=== PATIENT | male | born 1965 | race Two or more races ===

== ENCOUNTER → 2016-04-16 | Outpatient (CLI) | payer SELFPAY ==
[2016-04-16 11:48] LABS: ABSOLUTE BASOPHILS # (AUTO) 0.1 10^3/uL (0.0-0.2); ABSOLUTE EOSINOPHILS # (AUTO) 0.1 10^3/uL (0.0-0.6); ABSOLUTE LYMPHOCYTES (AUTO) 1.7 10^3/uL (0.5-4.7); ABSOLUTE MONOCYTES (AUTO) 1.4 10^3/uL (0.1-1.4); ABSOLUTE NEUT (AUTO) 7.7 10^3/uL (1.7-8.2); EOSINOPHILS % (AUTO) 0.9 % (0-6); HEMATOCRIT 40.9 % (37.9-51.0); HEMOGLOBIN 13.6 g/dL (13.5-17.0); HGB HCT DIFFERENCE -0.1; LYMPHOCYTES % (AUTO) 15.1 % (13-45); MEAN CORPUSCULAR HEMOGLOBIN 34.2 pg (27.0-33.4); MEAN CORPUSCULAR HGB CONC 33.4 g/dL (32.0-36.0); MEAN CORPUSCULAR VOLUME 102 fl (80-97); MONOCYTES % (AUTO) 12.6 % (3-13); RED BLOOD COUNT 3.99 10^6/uL (4.35-5.55); RED CELL DISTRIBUTION WIDTH 14.1 % (11.5-14.0); SEGMENTED NEUTROPHILS % (AUTO) 70.4 % (42-78)
[2016-04-16 12:17] LABS: ALBUMIN 3.7 g/dL (3.5-5.0); BILIRUBIN,TOTAL 1.6 mg/dL (0.2-1.3); TOTAL PROTEIN 7.6 g/dL (6.3-8.2)
== END ==
LOC: OD 10:54
PROVIDERS: ATTEND Surgery
DX: K76.9 Liver disease, unspecified (principal); R19.5 Other fecal abnormalities; R19.7 Diarrhea, unspecified
CPT/HCPCS: 36415; 80076; 82272; 85025; 87177

== ENCOUNTER 2016-05-28 09:45 | Day surgery (SDC) | payer OTHER ==
[2016-05-27 11:39] LABS: HEMATOCRIT 38.7 % (37.9-51.0); HEMOGLOBIN 13.1 g/dL (13.5-17.0); HGB HCT DIFFERENCE 0.6; MEAN CORPUSCULAR HEMOGLOBIN 32.6 pg (27.0-33.4); MEAN CORPUSCULAR HGB CONC 33.8 g/dL (32.0-36.0); MEAN CORPUSCULAR VOLUME 97 fl (80-97); RED BLOOD COUNT 4.02 10^6/uL (4.35-5.55); RED CELL DISTRIBUTION WIDTH 13.4 % (11.5-14.0); WHITE BLOOD COUNT 8.9 10^3/uL (4.0-10.5)
[~2016-05-28 09:45] MED LIST: ACETAMINOPHEN 325 MG TABLET PO PRN; LACTATED RINGERS 1000 ML IV PRN; LIDOCAINE 0.5% INJ-PF (5 MG/ML) 50 ML SDV SUBCUT PRN
[2016-05-28] MEDS ORDERED: LIDOCAINE 2% INJ-PF (20 MG/ML) 10 ML AMPUL ONE (11:29)
[2016-05-28] MEDS ORDERED: FENTANYL CITRATE INJ/PF 100 MCG/2 ML AMPUL ONE (11:29)
[2016-05-28] MEDS ORDERED: MIDAZOLAM 2 MG/2 ML INJ ONE (11:29)
[2016-05-28] MEDS ORDERED: PROPOFOL INJ 200 MG/20 ML VIAL IV ONE ×2 (11:30→12:01)
[2016-05-28] MEDS ORDERED: FENTANYL CITRATE INJ/PF 100 MCG/2 ML AMPUL IV PRN ×3 (12:04)
[2016-05-28] MEDS ORDERED: ONDANSETRON HCL INJ/PF 4 MG/2 ML SDV IV PRN (12:04)
[2016-05-28] MEDS ORDERED: DIPHENHYDRAMINE HCL 50 MG/ML VIAL IV PRN (12:04)
[2016-05-28] MEDS ORDERED: PROMETHAZINE HCL INJ 25 MG/1 ML VIAL IV PRN (12:04)
--- NOTE | 2016-05-28 12:29 | Operative Report ---
Operative Report DATE OF SURGERY: 05/28/16 PREOPERATIVE DIAGNOSIS: 1. Need for screening colonoscopy. 2. Family history of colon cancer POSTOPERATIVE DIAGNOSIS: 1.Same with 1 polypoid mass at ileocecal valve. 2. Left colon polyp. 3. Extensive sigmoid diverticulosis. 4. Collapsed external hemorrhoids OPERATION: 1. Total colonoscopy to cecum with photodocumentation. 2. Biopsy of cecal mass. 3. Colon polypectomy with hot snare device, left colon SURGEON: CAM SU ANESTHESIA: LMAC TISSUE REMOVED OR ALTERED: 1.biopsy of cecal mass. 2. Left colon polyp COMPLICATIONS: None ESTIMATED BLOOD LOSS: scant INTRAOPERATIVE FINDINGS: A below PROCEDURE: Obtaining informed consent the patient was taken from the preoperative holding area to the main endoscopy suite where monitoring devices were attached to the patient. Plan and surgical timeout were conducted The patient was placed in the left lateral decubitus position with knees to chest. A perianal examination was performed. There was no visible or palpable anorectal pathology. Sphincter tone was felt to be normal. There were collapsed external hemorrhoids identified. The flexible adult colonoscope was advanced through the anal rectal canal, all the way to the cecum. Utilization of the cecum was achieved and the ileocecal valve, the appendiceal orifice and transillumination of the anterior abdominal wall. This was an excellent study on the well-prepped bowel. The base of the cecum, presumably at the ileocecal valve was a void fullness possibly 2-3 cm in size had the appearance of the ileocecal valve but appeared to be more friable. Photos were taken and a cold forceps biopsy was performed of the mucosa. Bleeding was negligible. Because of the size of this mass and the ileocecal valve, it was left in situ. The colonoscope was withdrawn slowly and methodically checked and the mucosa carefully. There was no evidence of tumor, stricture, bleeding; there was a small on the wall of the left colon proximal to 60 cm from the anal verge. It was removed in its entirety and a hot snare device on medium heat strength. Specimen was retrieved and labeled as left colon polyp. Bleeding from the polypectomy site. Extensive sigmoid diverticulosis noted. There was no Evidence of stricture. The scope was slowly withdrawn through the anal rectal canal. Complete visualization of the rectum was achieved. The scope was withdrawn to the patient's anus. The patient tolerated the procedure well and was taken to the recovery area in stable condition. Pending pathologic findings, patient may require repeat colonoscopy, definitive management of cecal mass, or surveillance colonoscopy in one to 3 years.
--- NOTE | 2016-05-28 12:31 | PDOC DISCHARGE SUMMARY ---
Discharge Summary (SDC) - Discharge Final Diagnosis: 1. Sigmoid diverticulosis 2. Left colon polyp status post polypectomy 3. Cecal mass of uncertain significance Date of Surgery: 05/28/16 Discharge Date: 05/28/16 Condition: Good Treatment or Instructions: [address] [address] POST ENDOSCOPY DISCHARGE INSTRUCTIONS 1. Diet: Start clear liquids that a regular diet as tolerated. 2. Resume all preoperative medications. All oral anticoagulants and aspirins can be resumed 24 hours after procedure. 3. If a polypectomy was performed some bleeding per rectum may occur. This should stop within 3 days. If not, please contact the office. 4. If you had a colonoscopy you may experience some bloating and delayed return of normal bowel function for several days, your regular bowel movement pattern should resume within a week. 5. Please contact [facility] at to make an appointment with Dr. Campos for 1 to 3 weeks following procedure. 6. If you have any questions or concerns regarding your care,treatment plan or follow up, please contact our office. 7. Per clinical guidelines we recommend you undergo a repeat colonoscopy in one to 3 years depending upon the pathology of the cecal mass. Discharge Diet: As Tolerated Discharge Activity: Activity As Tolerated Report the Following to Your Physician Immediately: Shortness of Breath, Increase in Pain, Fever over 101 Degrees
[2016-05-28 13:38] VITALS: BP 131/80
== END 2016-05-28 13:45 | disposition home or self-care (01) ==
LOC: OROUT 09:45
PROVIDERS: ATTEND Surgery
PROC: 0DBH8ZX Excision of Cecum, Via Natural or Artificial Opening Endoscopic, Diagnostic (ICD-10-PCS; principal; 2016-05-28 12:00)
PROC: 0DBG8ZX Excision of Left Large Intestine, Via Natural or Artificial Opening Endoscopic, Diagnostic (ICD-10-PCS; 2016-05-28 12:00)
DX: Z12.11 Encounter for screening for malignant neoplasm of colon (principal); D12.0 Benign neoplasm of cecum; K63.5 Polyp of colon; K57.30 Diverticulosis of large intestine without perforation or abscess without bleeding; K44.9 Diaphragmatic hernia without obstruction or gangrene; F17.210 Nicotine dependence, cigarettes, uncomplicated; K76.9 Liver disease, unspecified; Z79.1 Long term (current) use of non-steroidal anti-inflammatories (NSAID); Z80.0 Family history of malignant neoplasm of digestive organs; Z88.8 Allergy status to other drugs, medicaments and biological substances
CPT/HCPCS: 45380; 45385; 36415; 85027; 88305 ×2; J2250; J3010; J2704; J3490; 810

== ENCOUNTER 2016-09-24 05:25 | Inpatient (IN) | payer OTHER ==
[2016-09-17 10:29] LABS: HEMATOCRIT 46.1 % (37.9-51.0); HEMOGLOBIN 15.8 g/dL (13.5-17.0); HGB HCT DIFFERENCE 1.3; MEAN CORPUSCULAR HEMOGLOBIN 31.3 pg (27.0-33.4); MEAN CORPUSCULAR HGB CONC 34.2 g/dL (32.0-36.0); MEAN CORPUSCULAR VOLUME 91 fl (80-97); RED BLOOD COUNT 5.05 10^6/uL (4.35-5.55); RED CELL DISTRIBUTION WIDTH 13.8 % (11.5-14.0)
[2016-09-17 10:53] LABS: ANION GAP 10 (5-19); BLOOD UREA NITROGEN 14 mg/dL (7-20); CALCIUM 9.7 mg/dL (8.4-10.2); CARBON DIOXIDE 26 mmol/L (22-30); CHLORIDE 105 mmol/L (98-107); CREATININE RESULT 1.07 mg/dL (0.52-1.25); GLUCOSE 89 mg/dL (75-110); POTASSIUM 4.7 mmol/L (3.6-5.0); SODIUM 141.2 mmol/L (137-145)
--- NOTE | 2016-09-18 13:05 | EKG REPORT ---
SEVERITY:- NORMAL ECG - SINUS RHYTHM : Confirmed by: Cal Shaw 18-Sep-2016 13:05:03
[~2016-09-24 05:25] MED LIST changes: -ACETAMINOPHEN 325 MG TABLET PO PRN; +AMPICILLIN SODIUM/SULBACTAM NA 3 GM in NORMAL SALINE 100 ML IV PRN; +DEXTROSE 5%-LACTATED RINGERS 1,000 ML IV PRN; -LACTATED RINGERS 1000 ML IV PRN; +LIDOCAINE 0.5% INJ-PF (5 MG/ML) 50 ML SDV INJ PRN; -LIDOCAINE 0.5% INJ-PF (5 MG/ML) 50 ML SDV SUBCUT PRN; +RINGERS SOLUTION,LACTATED 1,000 ML IV PRN
[2016-09-24] MEDS ORDERED: CITRIC ACID/SODIUM CITRATE ORAL SOLN 15 ML UDCUP ONE (07:06)
[2016-09-24] MEDS ORDERED: METOCLOPRAMIDE HCL INJ/PF 10 MG/2 ML SDV ONE (07:07)
[2016-09-24] MEDS ORDERED: ONDANSETRON HCL INJ/PF 4 MG/2 ML SDV ONE ×2 (07:07→09:13)
[2016-09-24] MEDS ORDERED: PEG 3350/NA SULF,BICARB,CL/KCL 4000 ML PO ONE (07:30)
[2016-09-24] MEDS ORDERED: LIDOCAINE 2% INJ-PF (20 MG/ML) 10 ML AMPUL ONE (09:13)
[2016-09-24] MEDS ORDERED: KETOROLAC TROMETHAMINE 60 MG/2 ML SDV ONE (09:13)
[2016-09-24] MEDS ORDERED: SUCCINYLCHOLINE CHLORIDE INJ 200 MG/10 ML VIAL ONE (09:13)
[2016-09-24] MEDS ORDERED: NEOSTIGMINE METHYLSULFATE 10 MG/10 ML VIAL ONE (09:13)
[2016-09-24] MEDS ORDERED: GLYCOPYRROLATE INJ 0.4 MG/2 ML VIAL ONE (09:13)
[2016-09-24] MEDS ORDERED: DEXAMETHASONE SOD PHOSPHATE INJ 4 MG/1 ML VIAL ONE (09:13)
[2016-09-24] MEDS ORDERED: ROCURONIUM BROMIDE INJ 50 MG/5 ML VIAL IV ONE (09:13)
[2016-09-24] MEDS ORDERED: FENTANYL CITRATE INJ/PF 250 MCG/5 ML AMPULE ONE (11:50)
[2016-09-24] MEDS ORDERED: MIDAZOLAM 2 MG/2 ML INJ ONE (11:51)
[2016-09-24] MEDS ORDERED: PROPOFOL INJ 200 MG/20 ML VIAL IV ONE (11:51)
[2016-09-24] MEDS ORDERED: HYDROMORPHONE HCL INJ/PF 2 MG/ML AMPULE ONE (11:51)
[2016-09-24] MEDS ORDERED: BUPIVACAINE HCL 0.25 % INJ/PF (2.5 MG/1 ML) 30 ML VIAL ONE (12:03)
[2016-09-24] MEDS ORDERED: BUPIVACAINE INJ/PF LIPOSOME/PF 266 MG/20 ML SDV ONE (12:03)
[2016-09-24] MEDS ORDERED: OXYCODONE-ACETAMINOPHEN 5-325 MG TABLET PO PRN ×2 (12:28)
[2016-09-24] MEDS ORDERED: FENTANYL CITRATE INJ/PF 100 MCG/2 ML AMPUL IV PRN ×3 (12:28)
[2016-09-24] MEDS ORDERED: DIPHENHYDRAMINE HCL 50 MG/ML VIAL IV PRN (12:28)
[2016-09-24] MEDS ORDERED: MORPHINE SULFATE 10 MG/ML INJ IV PRN (12:28)
[2016-09-24] MEDS ORDERED: PROMETHAZINE HCL INJ 25 MG/1 ML VIAL IV PRN ×2 (12:28)
[2016-09-24] MEDS ORDERED: MEPERIDINE HCL/PF INJ 25 MG/1 ML DISP.SYRIN IV PRN (12:28)
[2016-09-24] MEDS ORDERED: MORPHINE SULFATE 10 MG/ML INJ ONE (14:24)
[2016-09-24] MEDS ORDERED: ACETAMINOPHEN 100 ML IV ONE (15:21)
[2016-09-24] MEDS ORDERED: PHARMACY COMMUNICATION ORDER MC NR (16:00)
[2016-09-24] MEDS ORDERED: DEXTROSE 50%-WATER 25 GM/50 ML DISP.SYRIN IV PRN ×2 (16:00)
[2016-09-24] MEDS ORDERED: DEXTROSE 5%-LACTATED RINGERS 1,000 ML IV PRN (16:00)
[2016-09-24] MEDS ORDERED: DEXTROSE 40% GEL 15 GM TUBE PO PRN ×2 (16:00)
[2016-09-24] MEDS ORDERED: GLUCAGON,HUMAN RECOMB 1 MG INJ SUBCUT PRN (16:00)
--- NOTE | 2016-09-24 17:32 | OPERATIVE REPORT E ---
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 OPERATION: 1. Laparoscopic right hemicolectomy with ileal transverse anastomosis. 2. Meckel's diverticulectomy. SURGEON: CAM CAMPOS M.D. ANESTHESIA: General. GAS LEAK INSPECTOR HELPER: STACY Conn. COMPLICATIONS: None. ESTIMATED BLOOD LOSS: 200 mL. FINDINGS: See below. SUMMARY OF PROCEDURE: The patient was brought from the preop holding area to the main operating room where general anesthesia was induced. An orogastric tube was inserted. The arms were tucked to the patient's side. The abdomen was exposed, prepped and draped in a sterile fashion and instrumentation set up for laparoscopic colectomy. Prior to prepping, a Manzano catheter was inserted 16 Angolan uneventfully. There was return of clear yellow urine. Surgical plan and surgical timeout were conducted. The plan was for a right laparoscopic colectomy and possible conversion to open pending intraoperative findings. The indications were a cecal mass, biopsy showing tubulovillous adenoma. Skin was anesthetized with 0.25% Marcaine at the umbilicus. A vertically oriented supraumbilical incision was made with a knife and Veress needle inserted into the peritoneal cavity. Pneumoperitoneum was established. The Veress needle was removed, 5 mm port was inserted, and a 5 mm flexible scope was inserted. Under direct visualization, three additional ports were placed; one in the left upper quadrant, one in the left lower quadrant, one in the suprapubic position; all 5 mm, all under direct visualization. Visualization into the peritoneal cavity revealed no evidence of visceral or vascular injury. The stomach and liver appeared grossly normal, although there was some lobulation of the right lobe of the liver consistent with steatosis versus mild cirrhosis. No biopsy was obtained. Photos were obtained. Also of note was the patient's noted right inguinal hernia. There was no evidence of incarcerated tissue in the hernia. We placed the patient in Trendelenburg position and tilted him so the right side was up with left side down. We approached the patient's right colon by freeing up the small bowel and place it up to the left side of midline. This gave us exposure to the ileocolic region. Of note, we detected a previously undiagnosed Meckel's diverticulum approximately 2 feet from the ileocecal valve. It was photographed. We began the operation using the medial approach, elevating the ileocecal valve to the patient's left and the ileocolic mesentery to the right. The ileocecal mesentery was opened with the use of the LigaSure. We did some dissection into the mesentery until we identified the ileocolic vessels. They were dissected out nicely under excellent visualization, artery and vein clipped separately with hemoclips and then cauterized and divided. After some teasing away of the retroperitoneal space, we were able to get into the appropriate plane and begin our dissection elevating the right mesocolon cephalad and anteriorly, and the retroperitoneum posteriorly. We achieved visualization of the duodenum throughout the entire dissection and were confident that there was never any violation of the duodenal serosa. We stayed lateral to the duodenum and took the level of dissection up towards the hepatic flexure. Unfortunately, the retroperitoneum was rather tethered and did not separate as easily laterally as it did medially. At this point, we changed our operative position and approached the ileocolic region and began mobilizing these tissues. The appendix was strapped to the lateral pericolic gutter with mild inflammatory changes. The appendix was elevated off using the LigaSure device. The peritoneum overlying the ileocolic region was divided, and we began going up the white line of Toldt. Unfortunately, the plane of dissection was somewhat poorly delineated, but nonetheless, we were able to work our way from caudad to cephalad direction up to the hepatic flexure. We now changed our operative approach again and approached the transverse colon. It was retracted caudad, the gastrocolic omentum retracted cephalad, and we began opening up the gastrocolic omentum, all to the right of the patient's midline. This plane of dissection was taken all the way up to the level of the hepatic flexure. Eventually, we met our previous plane of dissection mobilizing the mesocolon from the medial approach. We had the duodenum in complete view and continued to sweep the transverse colon, proximal aspect, caudad. We now went back, changed positions, and freed up the rest of the ileocolic mesentery so that it was all intact with the planned specimen. There was excellent mobilization of the colon. Bleeding was cauterized as encountered but for the most part was minimal. We felt it was safe to now exteriorize the colon. The port was removed from midline, skin anesthetized with 0.25% Marcaine, and the initial incision extended cephalad and caudad encompassing the umbilicus. A conventional Oni wound access tissue hourly shift manager was installed into position. We brought the right colon out of the patient exteriorizing it safely. Again, the ileocolic vessels had been previously divided. The right colon was suspended from the right colic vessel, and the right branch of the middle colic vessels. We found a suitable site for transection at the terminal ileum proximal to the ileocecal valve, and the small bowel was divided with a single firing of the RAQUEL-55 stapler. The right colic vessels and the right branch of the middle colic vessels were divided and tied off with #0-Vicryl suture, and their pedicles allowed to retract. This now allowed the right colon to be suspended solely from the transverse colon. It was felt that it was suitable to divide down to transverse colon, and this was affected with a second firing of the RAQUEL-55 stapler. We were careful to keep the terminal ileum and the transverse colon distally in the appropriate orientation for the anastomosis. The specimen, right colon, was taken to the back taken and opened by Dr. Campos longitudinally and found to contain the tumor in the cecum. We returned to the field and now completed our ileotransverse cgxa-bl-luaq/functional end-to-end anastomosis. This was effected by bringing the two external surfaces together with 2-0 Vicryl suture. A small enterotomy and colotomy was made with the electrocautery. The RAQUEL-55 stapler was then threaded into position, and the stapler deployed. The suture line was inspected and found to have no significant bleeding. The common opening between the small bowel and the transverse colon was closed with a single firing of the TA-60 stapler. Two [id number] stitches of 2-0 Vicryl were used to secure the mesenteric defect. The anastomosis was not under tension, was well vascularized and pink. It was returned to the peritoneal cavity and the Oni cap placed into position. Pneumoperitoneum was returned. We resumed laparoscopic portion of the operation by inspecting for any mechanical bleeding, and there was none. A large Matt drain was placed in the inferior drain port site. In addition, while the bowel was exteriorized, we did amputate the Meckel's diverticulum using a single firing of the RAQUEL-55 stapler. The Meckel's diverticulum was sent to pathology as same. While inspecting the viscera, laparoscopically, we found the anastomosis and the Meckel's diverticulectomy site to be in good condition. At this point, we felt the operation was complete. Sponge and needle counts were correct. All ports were removed. The Oni was removed, and the midline incision closed with two running #0-PDS sutures. All incisions closed with cody, and the drain in the suprapubic position secured to the skin with 2-0 Prolene suture. The patient tolerated the procedure well, extubated, and taken to the recovery room in stable condition. STACY Conn, provided needed assistance. DICTATING PHYSICIAN: CAM CAMPOS M.D. [id number] PHY#: [id number] ID: [id number] JOB#: [id number] ACCT: [id number] cc:CAM CAMPOS M.D. > MTDD
[2016-09-24] MEDS: MORPHINE SULFATE 10 MG/ML INJ IV PRN ×2 (18:25→23:39)
[2016-09-24] MEDS: OXYCODONE-ACETAMINOPHEN 5-325 MG TABLET NG PRN (22:22)
[2016-09-25] MEDS: OXYCODONE-ACETAMINOPHEN 5-325 MG TABLET NG PRN ×2 (03:15→22:36)
[2016-09-25] MEDS: MORPHINE SULFATE 10 MG/ML INJ IV PRN ×4 (05:12→20:31)
[2016-09-25] MEDS ORDERED: DEXTROSE 5%-LACTATED RINGERS 1,000 ML IV PRN (09:19)
[2016-09-25] MEDS ORDERED: DEXTROSE 40% GEL 15 GM TUBE NG PRN ×2 (13:00)
--- NOTE | 2016-09-25 17:27 | PROGRESS NOTE E ---
Progress Note NAME: REJI COMBS : 1965 AGE: 51Y DATE: 09/25/2016 ROOM: 434 SUBJECTIVE: This is a subsequent hospital note. The patient had a good night, no complaints. Desires Manzano catheter removed. OBJECTIVE: VITAL SIGNS: Stable. ABDOMEN: Examined. It is wrapped with abdominal binder. Serosanguineous drainage in the bowl chamber of the drain. LABORATORY DATA: No labs pending. IMPRESSION: DOING WELL ONE DAY STATUS POST HEMICOLECTOMY FOR CECAL MASS, PATHOLOGY PENDING. PLAN: 1. Discontinue Manzano catheter. 2. Ambulate patient. 3. Start ice chips this afternoon. 4. May shower. DICTATING PHYSICIAN: CAM SU M.D. [id number] PHY#: [id number] ID: [id number] JOB#: [id number] ACCT: [id number] cc: >
[2016-09-26] MEDS: MORPHINE SULFATE 10 MG/ML INJ IV PRN ×2 (03:05→21:29)
[2016-09-26] MEDS: OXYCODONE-ACETAMINOPHEN 5-325 MG TABLET NG PRN (05:18)
[2016-09-26] MEDS: KETOROLAC TROMETHAMINE 10 MG TABLET PO PRN ×2 (10:18→16:56)
[2016-09-27] MEDS: MORPHINE SULFATE 10 MG/ML INJ IV PRN ×2 (05:52→09:38)
[2016-09-27] MEDS ORDERED: ACETAMINOPHEN 325 MG TABLET PO PRN (13:21)
--- NOTE | 2016-09-27 13:28 | PDOC PROGRESS REPORT ---
Subjective Progress Note for:: 09/27/16 Subjective:: patient is comfortabls, ambulating, denies flatus, tolerating clear liquids Physical Exam Vital Signs: Temp Pulse Resp BP Pulse Ox 98.0 F 67 16 135/84 H 94 09/27/16 11:50 09/27/16 11:50 09/27/16 11:50 09/27/16 11:50 09/27/16 11:50 Intake & Output 09/26/16 09/27/16 09/28/16 06:59 06:59 06:59 Intake Total 3268 780 Output Total 2305 1870 Balance 963 -1090 Weight 74 kg 70.5 kg Respiratory exam: PRESENT: clear to auscultation cristian Cardiovascular exam: PRESENT: RRR GI/Abdominal exam: PRESENT: hypoactive bowel sounds - incisions c/d/i, soft Results Laboratory Results: 09/17/16 09:20 09/17/16 09:20 Assessment & Plan - Plan Summary Plan Summary: A/ POD#3 after laparoscopic right hemicolectonmy for neoplasia patient VSS, AF no lfatus yet clears tolerated PE unremarkable P/ Continue clears until flatus Continue IVF stop morphine IV start Tylenol/Toradol for pain control if flatus is present tomorrow, I will advance diet to full liquids and possible d/c in 24/36 hrs
[2016-09-27] MEDS: KETOROLAC TROMETHAMINE 10 MG TABLET PO PRN (17:24)
[2016-09-28 06:01] LABS: ABSOLUTE BASOPHILS # (AUTO) 0.1 10^3/uL (0.0-0.2); ABSOLUTE EOSINOPHILS # (AUTO) 0.1 10^3/uL (0.0-0.6); ABSOLUTE LYMPHOCYTES (AUTO) 2.7 10^3/uL (0.5-4.7); BASOPHILS % (AUTO) 0.5 % (0-2); EOSINOPHILS % (AUTO) 0.8 % (0-6); HEMATOCRIT 39.4 % (37.9-51.0); HEMOGLOBIN 13.3 g/dL (13.5-17.0); HGB HCT DIFFERENCE 0.5; LYMPHOCYTES % (AUTO) 27.6 % (13-45); MEAN CORPUSCULAR HEMOGLOBIN 30.3 pg (27.0-33.4); MEAN CORPUSCULAR HGB CONC 33.8 g/dL (32.0-36.0); MEAN CORPUSCULAR VOLUME 90 fl (80-97); MONOCYTES % (AUTO) 10.4 % (3-13); RED BLOOD COUNT 4.39 10^6/uL (4.35-5.55); RED CELL DISTRIBUTION WIDTH 13.2 % (11.5-14.0); SEGMENTED NEUTROPHILS % (AUTO) 60.7 % (42-78); WHITE BLOOD COUNT 9.9 10^3/uL (4.0-10.5)
[2016-09-28 06:30] LABS: ANION GAP 9 (5-19); BLOOD UREA NITROGEN 20 mg/dL (7-20); CALCIUM 9.3 mg/dL (8.4-10.2); CARBON DIOXIDE 30 mmol/L (22-30); CHLORIDE 99 mmol/L (98-107); CREATININE RESULT 0.92 mg/dL (0.52-1.25); GLUCOSE 113 mg/dL (75-110); POTASSIUM 4.1 mmol/L (3.6-5.0); SODIUM 137.6 mmol/L (137-145)
[2016-09-28] MEDS: KETOROLAC TROMETHAMINE 10 MG TABLET PO PRN (10:13)
[2016-09-28 12:16] VITALS: BP 130/76
--- NOTE | 2016-09-28 15:08 | PDOC PROGRESS REPORT ---
Subjective Progress Note for:: 09/28/16 Subjective:: comfortable, patient has had stools and flatus today Physical Exam Vital Signs: Temp Pulse Resp BP Pulse Ox 98.0 F 59 L 15 130/76 H 98 09/28/16 11:58 09/28/16 11:58 09/28/16 11:58 09/28/16 11:58 09/28/16 11:58 Intake & Output 09/27/16 09/28/16 09/29/16 06:59 06:59 06:59 Intake Total 780 1480 420 Output Total 1870 400 Balance -1090 1080 420 Weight 70.5 kg 70 kg Respiratory exam: PRESENT: clear to auscultation cristian Cardiovascular exam: PRESENT: RRR GI/Abdominal exam: PRESENT: soft, other - wound c/d/i Results Laboratory Results: 09/28/16 05:23 09/28/16 05:23 09/28/16 09/28/16 05:23 05:23 WBC 9.9 RBC 4.39 Hgb 13.3 L Hct 39.4 MCV 90 MCH 30.3 MCHC 33.8 RDW 13.2 Plt Count 152 Seg Neutrophils % 60.7 Lymphocytes % 27.6 Monocytes % 10.4 Eosinophils % 0.8 Basophils % 0.5 Absolute Neutrophils 6.0 Absolute Lymphocytes 2.7 Absolute Monocytes 1.0 Absolute Eosinophils 0.1 Absolute Basophils 0.1 Sodium 137.6 Potassium 4.1 Chloride 99 Carbon Dioxide 30 Anion Gap 9 BUN 20 Creatinine 0.92 Est GFR ( Amer) > 60 Est GFR (Non-Af Amer) > 60 Glucose 113 H Calcium 9.3 Assessment & Plan - Plan Summary Plan Summary: A/ POD#4 after laparoscopic right hemicolectomy for neoplasia patient VSS, AF flatus and stools present PE unremarkable P/ Home today F/U with Dr. Campos within 1 week Full liquid diet, advance to regular as tolerated in 1-2 days no lifting >10 pounds x 3 months Shower only until staple are in then can bathe in 2 weeks Tylenol/Aleve prn pain
--- NOTE | 2016-09-29 14:56 | DISCHARGE SUMMARY E ---
Discharge Summary NAME: REJI COMBS : 1965 AGE: 51Y ADMITTED: 09/24/2016 DISCHARGED: 09/28/2016 FINAL DIAGNOSIS: Right colon cancer. PROCEDURE: Laparoscopic right hemicolectomy on September 24, 2016. COMPLICATIONS: None. HOSPITAL COURSE: This is a 51-year-old male found to have a right colon cancer. The patient was admitted on 09/24/2016 and underwent laparoscopic right hemicolectomy by Dr. Campos. The procedure was uneventful. The patient was transferred to the floor. His postoperative course was uneventful. The patient remained afebrile with stable vital signs, and eventually on postop day #4, the patient developed flatus/stools. DISCHARGE INSTRUCTIONS: The patient was discharged on September 28, 2016, was given a follow-up appointment with Dr. Campos within a week. He was given Tylenol p.r.n. and Aleve p.r.n. for pain. He was told to follow a full-liquid diet for the next the day and to increase the diet to regular in the next 1 to 2 days. He was instructed to shower only, and then the patient could bathe following removal of the cody and to follow up with his primary care physician as well. DICTATING PHYSICIAN: CASSIA SPEARS M.D. [id number] PHY#: [id number] ID: [id number] JOB#: [id number] ACCT: [id number] cc:CAM CAMPOS M.D., GIOVANNI M.D. > MTDD
== END 2016-09-28 16:00 | disposition home or self-care (01) | DRG 331 ==
LOC: INOR 05:25 → EDSTATUS 07:30 → 4S 17:53 → 5 09-26 17:22
PROVIDERS: ADMIT Surgery; ATTEND Surgery
PROC: 0DBB0ZZ Excision of Ileum, Open Approach (ICD-10-PCS; 2016-09-24)
PROC: 0DTF0ZZ Resection of Right Large Intestine, Open Approach (ICD-10-PCS; principal; 2016-09-24 07:30)
DX: D12.0 Benign neoplasm of cecum (principal); Q43.0 Meckel's diverticulum (displaced) (hypertrophic); K40.90 Unilateral inguinal hernia, without obstruction or gangrene, not specified as recurrent; Z80.0 Family history of malignant neoplasm of digestive organs; F17.200 Nicotine dependence, unspecified, uncomplicated
CPT/HCPCS: 36415; 790; 80048; 85025; 85027; 88307; 93005; 93010; 94799; C9290; J0131; J0295; J0330; J1100; J1170; J1885; J2250; J2270; J2405; J2704; J2765; J3010; J3490

== ENCOUNTER 2017-04-01 09:45 | Day surgery (SDC) | payer OTHER ==
[2017-03-25 10:43] LABS: HEMATOCRIT 46.6 % (37.9-51.0); HEMOGLOBIN 15.8 g/dL (13.5-17.0); MEAN CORPUSCULAR HEMOGLOBIN 31.3 pg (27.0-33.4); MEAN CORPUSCULAR HGB CONC 33.8 g/dL (32.0-36.0); MEAN CORPUSCULAR VOLUME 92 fl (80-97); PLATELET COUNT 153 10^3/uL (150-450); RED BLOOD COUNT 5.04 10^6/uL (4.35-5.55); WHITE BLOOD COUNT 8.2 10^3/uL (4.0-10.5)
[2017-03-25 11:14] LABS: BLOOD UREA NITROGEN 15 mg/dL (7-20); CALCIUM 9.9 mg/dL (8.4-10.2); GLUCOSE 153 mg/dL (75-110)
[2017-03-25 11:15] LABS: ANION GAP 11 (5-19); CARBON DIOXIDE 26 mmol/L (22-30); CHLORIDE 103 mmol/L (98-107); POTASSIUM 4.6 mmol/L (3.6-5.0); SODIUM 139.6 mmol/L (137-145)
--- NOTE | 2017-03-25 11:41 | RADIOLOGY REPORT (SQ) ---
EXAM DESCRIPTION: CHEST PA/LATERAL COMPLETED DATE/TIME: 03/25/2017 10:39 am REASON FOR STUDY: PRE OP COMPARISON: None. TECHNIQUE: Frontal and lateral radiographic views of the chest acquired. NUMBER OF VIEWS: Two view. LIMITATIONS: None. FINDINGS: LUNGS AND PLEURA: No opacities, masses or pneumothorax. No pleural effusion. MEDIASTINUM AND HILAR STRUCTURES: No masses or contour abnormalities. HEART AND VASCULAR STRUCTURES: Heart normal size. No evidence for failure. BONES: No acute findings. HARDWARE: None in the chest. OTHER: No other significant finding. IMPRESSION: NO SIGNIFICANT RADIOGRAPHIC FINDING IN THE CHEST. TECHNICAL DOCUMENTATION: JOB ID: [id number] [email or web address]- All Rights Reserved
--- NOTE | 2017-03-26 08:46 | EKG REPORT ---
SEVERITY:- NORMAL ECG - SINUS RHYTHM : Confirmed by: Cal Shaw 26-Mar-2017 08:45:47
[~2017-04-01 09:45] MED LIST changes: +ACETAMINOPHEN 325 MG TABLET PO PRN; -AMPICILLIN SODIUM/SULBACTAM NA 3 GM in NORMAL SALINE 100 ML IV PRN; +CEFAZOLIN 1 GM/D5W RTU 1 GM/50 ML RTUPB IV SCH; -DEXTROSE 5%-LACTATED RINGERS 1,000 ML IV PRN; +LACTATED RINGERS 1000 ML IV PRN; -LIDOCAINE 0.5% INJ-PF (5 MG/ML) 50 ML SDV INJ PRN; +LIDOCAINE 0.5% INJ-PF (5 MG/ML) 50 ML SDV SUBCUT PRN
[2017-04-01] MEDS ORDERED: ALBUTEROL SULFATE 0.083% NEB 2.5 MG/3 ML AMPUL NEB ONE (11:00)
[2017-04-01] MEDS ORDERED: DEXAMETHASONE SOD PHOSPHATE INJ 4 MG/1 ML VIAL ONE (11:03)
[2017-04-01] MEDS ORDERED: ONDANSETRON HCL INJ/PF 4 MG/2 ML SDV ONE (11:03)
[2017-04-01] MEDS ORDERED: FENTANYL CITRATE INJ/PF 100 MCG/2 ML AMPUL ONE (11:03)
[2017-04-01] MEDS ORDERED: PROPOFOL INJ 200 MG/20 ML VIAL IV ONE (11:03)
[2017-04-01] MEDS ORDERED: MIDAZOLAM 2 MG/2 ML INJ ONE (11:03)
[2017-04-01] MEDS ORDERED: KETOROLAC TROMETHAMINE 60 MG/2 ML SDV ONE (11:04)
[2017-04-01] MEDS ORDERED: BUPIVACAINE INJ/PF LIPOSOME/PF 266 MG/20 ML SDV ONE (11:10)
[2017-04-01] MEDS ORDERED: BUPIVACAINE HCL 0.25 % INJ/PF (2.5 MG/1 ML) 30 ML VIAL ONE (11:11)
[2017-04-01] MEDS ORDERED: MEPERIDINE HCL/PF INJ 25 MG/1 ML DISP.SYRIN IV PRN (11:44)
[2017-04-01] MEDS ORDERED: FENTANYL CITRATE INJ/PF 100 MCG/2 ML AMPUL IV PRN ×3 (11:44)
[2017-04-01] MEDS ORDERED: MORPHINE SULFATE 10 MG/ML INJ IV PRN (11:44)
[2017-04-01] MEDS ORDERED: DIPHENHYDRAMINE HCL 50 MG/ML VIAL IV PRN (11:44)
[2017-04-01] MEDS ORDERED: OXYCODONE-ACETAMINOPHEN 5-325 MG TABLET PO PRN ×3 (11:44→13:00)
[2017-04-01] MEDS ORDERED: PROMETHAZINE HCL INJ 25 MG/1 ML VIAL IV PRN ×2 (11:44)
--- NOTE | 2017-04-01 13:00 | PDOC DISCHARGE SUMMARY ---
Discharge Summary (SDC) - Discharge Final Diagnosis: Right Pantaloon hernia Date of Surgery: 04/01/17 Discharge Date: 04/01/17 Condition: Stable Treatment or Instructions: [facility] [address] [place] [id number] Discharge Instructions: Open Abdominal Procedures (Hernia, Bowel Surgery) 1.General Information: a. DO NOT DRIVE a car or operative machinery for 1-2 weeks b. DO NOT consume alcohol, tranquilizers, sleeping medication, or any non- prescribed medication for 24 hours unless approved by your doctor or as long as taking pain medication. c. DO NOT make important decisions or sign any important papers for the first 24 hours after surgery. d. When discharged home the same day as surgery have a responsible person with you the first night. 2.Activity Restriction: 8 weeks; a. Avoid heavy lifting (> 10-15 lbs), straining abdominal muscles and sports, mowing lawn, vacuum pipe cleaner and bending over a lot. b. Walking is important to avoid blood clots in the legs and deep breathing can prevent pneumonia. c. If it fine to go for walks, up and down steps, and ride in a car. 3.Treatment: a. You may remove dressing or Band-Aids the day after surgery and shower then daily is fine, but you should not bathe in a tub or go swimming for 2 weeks. b. If you have paper strips (steri strips) on the skin, do not remove them as they will fall off in the coming weeks. Pat them dry after your shower. Sutures beneath the paper strips dissolve. If you have skin sutures or metal cody they will be removed on your follow up visit. They may also get wet with a shower. c. Do not use oils, powders, or lotion on your incision. 4.Medications: a. You may take prescription tablets for pain if needed, one or two every 4 hours (_Toradol ). c. You may resume all normal medications unless a change is specified by your doctors. 5.Diet: a. If going home the same day as surgery start with clear liquids, and if you do well then advance to normal foods low inf fat and protein. Smaller portion size may be neal the first night. 6.Notify Physician If: a. Pain is not relieved by pain medication b. Persistent nausea and vomiting c. Chills, fever (above 101) d. Persistent bleeding or swelling at the operative site e. Unable to urinate for 6-8 hours f. Increased redness, drainage, or foul smelling discharge from incision 7. Follow Up Care: a. Please call our office to schedule an appointment with your doctor for 2 weeks. In the event of any postoperative problems or questions you may call our office during business hours or the On-Call surgeon through the margarine churn operator at [facility]. [facility] [phone] [facility] [phone] (Ask for the surgeon front man) b. I understand the instructions for my postoperative care as described above and a copy has been given to me. _ Witness Patient/Significant Other Date Prescriptions: Ketorolac Tromethamine [Toradol 10 mg Tablet] 10 mg PO Q6HP PRN #20 tablet PRN Reason: Discharge Diet: As Tolerated Discharge Activity: No Lifting Over 10 Pounds, No Lifting/Push/Pulling, Walk Frequently Report the Following to Your Physician Immediately: Nausea, Vomiting, Fever over 101 Degrees, Unusual Bleeding, Redness, Drainage-Foul Smelling
[2017-04-01] MEDS ORDERED: ONDANSETRON HCL INJ/PF 4 MG/2 ML SDV IV PRN (13:01)
--- NOTE | 2017-04-01 13:14 | Operative Report ---
Operative Report DATE OF SURGERY: 04/01/17 PREOPERATIVE DIAGNOSIS: Right inguinal hernia POSTOPERATIVE DIAGNOSIS: Same with double or pantaloon hernia right inguinal area;. Hyperpigmented right retroperitoneal lymph node OPERATION: 1. Right inguinal exploration. 2. Reduction of right direct, and right indirect inguinal hernias repair of inguinal floor using large [employer] Prolene hernia system. 3. Digital biopsy of right retroperitoneal lymph node SURGEON: CAM SU 1ST TEXTILE CONVERTER: BEAN RODRÍGUEZ ANESTHESIA: GA TISSUE REMOVED OR ALTERED: Right retroperitoneal lymph node COMPLICATIONS: None ESTIMATED BLOOD LOSS: Scant INTRAOPERATIVE FINDINGS: See below PROCEDURE: The patient was seen in the preop holding area with the right inguinal area was marked. The patient then taken the main operating room and general anesthesia was induced. Right inguinal area been previously clipped then prepped and draped in sterile fashion with Betadine Landmarks were identified; skin was anesthetized with quarter percent Marcaine plain. Approximately 5 and half centimeter long incision was made over the palpable landmarks including the external inguinal ring and canal. Subcutaneous tissue and Marisela's fascia divided with electrocautery. The external oblique aponeurosis was divided along the direction of its fibers. Contents of the inguinal canal now carefully dissected free of all surrounding fascial planes. This was a beautiful dissection under excellent visualization. We dissected away a moderate to large sized direct inguinal hernia sac, intact , and separate from cord structures. The ilioinguinal nerve was identified and preserved throughout the dissection. Lateral to the direct hernia sac was a pedunculated fatty mass which was further clarified and found to be a separate peritoneal lining. We dissected out in its entirety and identified it as a indirect sac, separate from the direct sac, and coming lateral to the inferior epigastric vessels. In addition there was a retroperitoneal fatty lymph node which was delivered during this dissection. All of these structures were splayed out, and photographs obtained. At this point I felt that amputation of the hyper pigmented right retroperitoneal lymph node was suitable for removal and so was amputated, and its pedicle oversewed with a 2-0 Vicryl suture. At this point the indirect sac was reduced into the retroperitoneal space. Cord structures and ilioinguinal nerve swept inferiorly, and an opening was made into the retroperitoneal space to develop the large retroperitoneal pocket to deploy a [employer] Ethicon hernia prosthesis. Space was opened up using blunt finger dissection. The inferior epigastric vessels were kept in a more medial position. This enabled reduction of both direct and indirect sacs into the retroperitoneal compartment, away from the intra-abdominal wall. We now brought onto the field a non- large [employer] Prolene hernia system prosthesis, and deployed the inner component into the space previously created. We splayed it out in a circumferential fashion and satisfied with the laying of the mesh. The external component was trimmed slightly, with an upside down U created in the 6 o'clock position to accommodate the cord structures. Using approximately 7 to 8 PDS sutures, 0, the mesh was secured to Poupart ligament and conjoined tendon in a circumferential fashion. The newly created internal ring was not too tight. Cord structures were allowed to lay in an anatomic position along with the ilioinguinal nerve. We felt the operation was complete. There was no significant bleeding. External oblique aponeurosis closed along the direction of its fibers with 2-0 Vicryl suture, Marisela's fascia closed with 2-0 Vicryl suture, and subcutaneous tissue and skin closed with 3-0 Vicryl suture. Subcutaneous tissue anesthetized with 20% Exparel. Patient tolerated the procedure well, extubated, and taken to recovery room in stable condition. The physician phys assistant, Ms. Conn, provided assistance during this case by: Assisting retracting tissue, instillation of local anesthesia and closure of skin incisions.
[2017-04-01 15:26] VITALS: BP 154/101
== END 2017-04-01 15:05 | disposition home or self-care (01) ==
LOC: OROUT 09:45
PROVIDERS: ATTEND Surgery
PROC: 07BH0ZX Excision of Right Inguinal Lymphatic, Open Approach, Diagnostic (ICD-10-PCS; 2017-04-01)
PROC: 0YU50JZ Supplement Right Inguinal Region with Synthetic Substitute, Open Approach (ICD-10-PCS; principal; 2017-04-01 12:00)
DX: K40.90 Unilateral inguinal hernia, without obstruction or gangrene, not specified as recurrent (principal); L81.8 Other specified disorders of pigmentation; F17.200 Nicotine dependence, unspecified, uncomplicated; Z80.0 Family history of malignant neoplasm of digestive organs
CPT/HCPCS: 49505; 38500; 93005; 36415; 85027; 80048; 88305 ×2; 71046; 93010; C1781; J2250; J0690; J1100; J1885; J3010; J2405; J2704; C9290; 830

== ENCOUNTER → 2018-02-05 | Outpatient (CLI) | payer OTHER | LOC: CCC 12:16 | DX: Z53.9 Procedure and treatment not carried out, unspecified reason (principal) ==

== ENCOUNTER → 2018-02-08 | Outpatient (CLI) | payer OTHER ==
[2018-02-08 08:42] LABS: ALANINE AMINOTRANSFERASE 69 U/L (21-72); ALBUMIN 4.4 g/dL (3.5-5.0); ALKALINE PHOSPHATASE 69 U/L (38-126); ANION GAP 13 (5-19); ASPARTATE AMINO TRANSFERASE 101 U/L (17-59); BILIRUBIN,DIRECT 0.3 mg/dL (0.0-0.4); BILIRUBIN,TOTAL 0.4 mg/dL (0.2-1.3); BLOOD UREA NITROGEN 12 mg/dL (7-20); CALCIUM 9.3 mg/dL (8.4-10.2); CARBON DIOXIDE 26 mmol/L (22-30); CHLORIDE 108 mmol/L (98-107); CHOLESTEROL 272.85 mg/dL (0-200); GLUCOSE 139 mg/dL (75-110); POTASSIUM 4.2 mmol/L (3.6-5.0); SODIUM 146.5 mmol/L (137-145); TRIGLYCERIDES 222 mg/dL (<150)
[2018-02-08 08:53] LABS: DIRECT LDL 189 mg/dL (<100)
[2018-02-08 08:58] LABS: VLDL CHOLESTEROL 44.4 mg/dL (10-31)
== END ==
LOC: CCC 07:05
DX: Z00.00 Encounter for general adult medical examination without abnormal findings (principal)
CPT/HCPCS: 36415; 80053; 80061; 83036; 84443

== ENCOUNTER → 2018-03-15 | Outpatient (CLI) | payer OTHER ==
--- NOTE | 2018-03-15 13:07 | RADIOLOGY REPORT (SQ) ---
EXAM DESCRIPTION: MRI CERVICAL SPINE COMBO COMPLETED DATE/TIME: 03/15/2018 8:50 am REASON FOR STUDY: CERVICAL RADICULOPATHY, (M54.12) CERVICAL ROOT DISORDERS, NEC (G54.2) M54.12 RADI CULOPATHY, CERVICAL REGION G54.2 CERVICAL ROOT DISORDERS, NOT ELSEWHERE CLASSIFIED COMPARISON: None. TECHNIQUE: Sagittal and Axial imaging includes T1, T2, STIR and gradient echo sequences. T1 post donnie olinium sequences. CONTRAST TYPE AND DOSE: 10 mL Dotarem. RENAL FUNCTION: Creatinine 1.1 LIMITATIONS: None. FINDINGS: ALIGNMENT: Slight anterolisthesis of C4 relative to C5. VERTEBRAE: Intact. BONE MARROW: Incidental hemangioma T2. DISCS: Desiccation multiple levels. HARDWARE: None in the spine. CORD AND BASE OF BRAIN: Normal in size and signal intensity. SOFT TISSUES: No soft tissue masses. C1-C2: No significant spinal stenosis. C2-C3: No significant spinal stenosis or exit foraminal stenosis. C3-C4: Minimal narrowing of the spinal canal due to disc osteophyte complex. C4-C5: Mild spinal stenosis due disc osteophyte complex. Mild neural foraminal narrowing bilaterally . C5-C6: Minimal narrowing of the spinal canal. C6-C7: No significant stenosis. C7-T1: No significant spinal stenosis or exit foraminal stenosis. UPPER THORACIC: Incompletely imaged. No significant spinal stenosis or exit foraminal stenosis. ENHANCEMENT: No abnormal enhancement. OTHER: No other significant finding. IMPRESSION: Mild spinal stenosis. No acute findings. COMMENT: None. TECHNICAL DOCUMENTATION: JOB ID: [id number] [employer]- All Rights Reserved Reading location - IP/workstation name: [email or web address]
== END ==
LOC: RAD 07:48
DX: M54.12 Radiculopathy, cervical region (principal); G54.2 Cervical root disorders, not elsewhere classified; M48.02 Spinal stenosis, cervical region
CPT/HCPCS: 82565; 72156; A9576

== ENCOUNTER → 2018-06-03 | Outpatient (CLI) | payer OTHER ==
[2018-06-03 10:29] LABS: ANION GAP 14 (5-19); BLOOD UREA NITROGEN 23 mg/dL (7-20); CALCIUM 9.8 mg/dL (8.4-10.2); CARBON DIOXIDE 30 mmol/L (22-30); CHLORIDE 95 mmol/L (98-107); GLUCOSE 165 mg/dL (75-110); POTASSIUM 4.3 mmol/L (3.6-5.0); SODIUM 139.2 mmol/L (137-145)
== END ==
LOC: CCC 09:17
DX: Z00.00 Encounter for general adult medical examination without abnormal findings (principal)
CPT/HCPCS: 36415; 80048

== ENCOUNTER → 2019-03-11 | Outpatient (CLI) | payer OTHER ==
[2019-03-11 09:58] LABS: ABSOLUTE BASOPHILS # (AUTO) 0.1 10^3/uL (0.0-0.2); ABSOLUTE EOSINOPHILS # (AUTO) 0.1 10^3/uL (0.0-0.6); ABSOLUTE LYMPHOCYTES (AUTO) 1.4 10^3/uL (0.5-4.7); ABSOLUTE MONOCYTES (AUTO) 0.8 10^3/uL (0.1-1.4); ABSOLUTE NEUT (AUTO) 5.1 10^3/uL (1.7-8.2); BASOPHILS % (AUTO) 1.1 % (0-2); EOSINOPHILS % (AUTO) 0.7 % (0-6); HEMATOCRIT 37.4 % (37.9-51.0); LYMPHOCYTES % (AUTO) 18.9 % (13-45); MEAN CORPUSCULAR HEMOGLOBIN 35.8 pg (27.0-33.4); MEAN CORPUSCULAR HGB CONC 34.8 g/dL (32.0-36.0); MEAN CORPUSCULAR VOLUME 103 fl (80-97); MONOCYTES % (AUTO) 10.9 % (3-13); RED BLOOD COUNT 3.64 10^6/uL (4.35-5.55); RED CELL DISTRIBUTION WIDTH 14.1 % (11.5-14.0); SEGMENTED NEUTROPHILS % (AUTO) 68.4 % (42-78); TOTAL CELLS COUNTED % (AUTO) 100 %; WHITE BLOOD COUNT 7.5 10^3/uL (4.0-10.5)
[2019-03-11 10:26] LABS: PLATELET COUNT 100 10^3/uL (150-450)
[2019-03-11 10:29] LABS: ALKALINE PHOSPHATASE 138 U/L (38-126); ANION GAP 12 (5-19); ASPARTATE AMINO TRANSFERASE 138 U/L (17-59); BILIRUBIN,DIRECT 1.1 mg/dL (0.0-0.4); BILIRUBIN,TOTAL 1.7 mg/dL (0.2-1.3); BLOOD UREA NITROGEN 17 mg/dL (7-20); CALCIUM 9.1 mg/dL (8.4-10.2); CARBON DIOXIDE 30 mmol/L (22-30); CHLORIDE 100 mmol/L (98-107); CHOLESTEROL 209.18 mg/dL (0-200); GLUCOSE 131 mg/dL (75-110); POTASSIUM 3.4 mmol/L (3.6-5.0); TOTAL PROTEIN 8.4 g/dL (6.3-8.2); TRIGLYCERIDES 188 mg/dL (<150)
[2019-03-11 10:41] LABS: DIRECT LDL 174 mg/dL (<100)
[2019-03-11 10:44] LABS: VLDL CHOLESTEROL 37.6 mg/dL (10-31)
== END ==
LOC: CCC 08:49
DX: Z00.00 Encounter for general adult medical examination without abnormal findings (principal)
CPT/HCPCS: 36415; 80053; 80061; 83036; 84443; 85025

== ENCOUNTER → 2019-03-11 | Outpatient (CLI) | payer OTHER ==
--- NOTE | 2019-03-11 12:39 | RADIOLOGY REPORT (SQ) ---
EXAM DESCRIPTION: MRI LUMBAR SPINE WITHOUT COMPLETED DATE/TIME: 03/11/2019 10:46 am REASON FOR STUDY: M79.605 PAIN IN LEFT LEG M79.605 PAIN IN LEFT LEG M54.12 RADICULOPATHY, CERVICAL REGION COMPARISON: None. TECHNIQUE: Sagittal and Axial imaging includes T1, T2, STIR and gradient echo sequences. Coronal T2/ HASTE imaging. LIMITATIONS: None. FINDINGS: VISUALIZED UPPER ABDOMEN: Limited evaluation. No acute or suspicious findings suggested. SEGMENTATION: No transitional anatomy. The lowest well-developed disc space is labeled L5-S1. ALIGNMENT: Anatomic. VERTEBRAE: Intact. BONE MARROW: Normal. No marrow replacement or reactive changes. DISC SIGNAL: Decreased T2 signal at L3-4, L4-5, and L5-S1. These disc spaces are narrowed. POSTERIOR ELEMENTS: Generally intact. No pars defect evident. HARDWARE: None in the spine. CORD AND CONUS: Normal in size and signal intensity. Conus at the T12-L1 level. SOFT TISSUES: No aortic aneurysm seen. No bulky retroperitoneal adenopathy or mass. No paraspinal mas s or fluid. L1-L2: No significant spinal stenosis or exit foraminal stenosis. L2-L3: No significant spinal stenosis or exit foraminal stenosis. L3-L4: Mild circumferential disc bulging with no significant central canal or foraminal stenosis. L4-L5: Mild circumferential disc bulging with no significant central canal or foraminal stenosis. L5-S1: Annular tear. Shallow right paracentral disc protrusion with no central canal or foraminal st enosis. LOWER THORACIC: Incompletely imaged. No stenosis seen. SACRUM: Visualized upper sacrum intact. OTHER: No other significant findings. IMPRESSION: There is mild circumferential disc bulging at L3-4 and L4-5 with no significant stenoses . There is an annular tear at L5-S1. There is a shallow right paracentral disc protrusion with no s ignificant stenoses. TECHNICAL DOCUMENTATION: JOB ID: [id number]- All Rights Reserved Reading location - IP/workstation name: [email or web address]
== END ==
LOC: RAD 09:15
PROVIDERS: ATTEND Family Medicine
DX: M51.16 Intervertebral disc disorders with radiculopathy, lumbar region (principal); M79.605 Pain in left leg
CPT/HCPCS: 72148

== ENCOUNTER → 2019-04-06 | Outpatient (CLI) | payer OTHER ==
--- NOTE | 2019-04-06 10:47 | RADIOLOGY REPORT (SQ) ---
EXAM DESCRIPTION: U/S ABDOMEN LIMITED W/O DOP COMPLETED DATE/TIME: 04/06/2019 9:34 am REASON FOR STUDY: DISORDER OF BILIRUBIN METABOLISM, UNSPECIFIED E80.7 DISORDER OF BILIRUBIN METABOL ISM, UNSPECIFIED COMPARISON: CT dated 11/24/2014 TECHNIQUE: Dynamic and static grayscale images acquired of the abdomen and recorded on PACS. Additio nal selected color Doppler and spectral images recorded. LIMITATIONS: None. FINDINGS: PANCREAS: Limited visualization. No obvious masses. LIVER: The liver is very heterogeneous in echotexture. It measures 17 cm in length. There appear to be multiple focal hepatic lesions. These could represent regenerating nodules. The largest measure s 6.6 x 6.0 x 4.8 cm. The caudate lobe is enlarged. LIVER VASCULATURE: Normal directional flow of the main portal vein and hepatic veins. GALLBLADDER: Gallbladder wall is thickened measured 4 mm. There is pericholecystic edema. ULTRASOUND-DETECTED LEHMAN'S SIGN: Negative. INTRAHEPATIC DUCTS AND COMMON DUCT: No ductal dilatation. INFERIOR VENA CAVA: Not visualized. AORTA: No aneurysm. RIGHT KIDNEY: Normal size. Normal echogenicity. No solid or suspicious masses. No hydronephrosis. No calcifications. PERITONEAL AND RIGHT PLEURAL SPACE: There is free fluid surrounding the liver. OTHER: No other significant findings. IMPRESSION: Heterogeneous attenuation throughout the liver with multiple hepatic lesions possibly re generating nodules. Neoplasm is thought to be less likely. Further evaluation with CT is recommende d. Enlarged caudate lobe. TECHNICAL DOCUMENTATION: JOB ID: [id number] 2010 [employer]- All Rights Reserved Reading location - IP/workstation name: [email or web address]
== END ==
LOC: RAD 08:49
PROVIDERS: ATTEND Family Medicine
DX: E80.7 Disorder of bilirubin metabolism, unspecified (principal)
CPT/HCPCS: 76705

== ENCOUNTER → 2019-05-18 | Outpatient (CLI) | payer OTHER ==
--- NOTE | 2019-05-18 11:11 | RADIOLOGY REPORT (SQ) ---
EXAM DESCRIPTION: CT ABD/PELVIS COMBO IMAGES COMPLETED DATE/TIME: 05/18/2019 10:39 am REASON FOR STUDY: HEPATIC MASSES (R93.2) R93.2 ABNORMAL FINDINGS ON DX IMAGING OF LIVER AND BILIARY T COMPARISON: Ultrasound dated 04/06/2019, prior CT abdomen and pelvis dated 11/24/2014 TECHNIQUE: CT scan of the abdomen and pelvis performed with and without intravenous contrast, and wi thout oral contrast. Contrasted imaging performed helical scanning technique and dynamic intravenous contrast injection. Images reviewed with lung, soft tissue, and bone windows. Reconstructed coronal a nd sagittal MPR images reviewed. Delayed images for evaluation of the urinary system also acquired. A ll images stored on PACS. All CT scanners at this facility use dose modulation, iterative reconstruction, and/or weight based d osing when appropriate to reduce radiation dose to as low as reasonably achievable (ALARA). [facility]: Dose Right [facility]: CareDose [facility]: Dose Right [facility]: Teradose 4D [facility]: to[place]o CONTRAST TYPE AND DOSE: contrast/concentration: Isovue 350.00 mg/ml; Total Contrast Delivered: 48.0 ml; Total Saline Delivered: 78.0 ml RENAL FUNCTION: Creatinine 0.9 RADIATION DOSE: CT Rad equipment meets quality standard of care and radiation dose reduction techniq ues were employed. CTDIvol: 5.7 - 16.9 mGy. DLP: 1306 mGy-cm. . LIMITATIONS: None. FINDINGS: NON-CONTRASTED IMAGING: No significant renal or bladder calcifications. No other significa nt organ calcifications. POST-CONTRASTED IMAGING: LOWER CHEST: Small right pleural effusion with right lower lobe atelectasis. This is new from prior study. LIVER: The liver is nodular in appearance there is heterogeneous attenuation. Caudate lobe is enlarg ed. There is a small amount of perihepatic fluid. No definite masses. No vessel displacement. Fin dings described on ultrasound presumably represent regenerating nodules. SPLEEN: Normal size. No focal lesions. PANCREAS: No masses. No significant calcifications. No adjacent inflammation or peripancreatic fluid collections. Pancreatic duct not dilated. GALLBLADDER: There is pericholecystic fluid. No stones. ADRENAL GLANDS: No significant masses or asymmetry. RIGHT KIDNEY AND URETER: No solid masses. No significant calcifications. No hydronephrosis or hyd roureter. LEFT KIDNEY AND URETER: No solid masses. No significant calcifications. No hydronephrosis or hydr oureter. AORTA AND VESSELS: No aneurysm. No dissection. Renal arteries, SMA, celiac without stenosis. RETROPERITONEUM: No retroperitoneal adenopathy, hemorrhage or masses. BOWEL AND PERITONEAL CAVITY: No masses or inflammatory changes. No free fluid or peritoneal masses. APPENDIX: Normal. PELVIS: Not visualized. ABDOMINAL WALL: Umbilical hernia containing omental fat. BONES: No significant or acute findings. OTHER: No other significant finding. IMPRESSION: Enlarged liver with heterogeneous attenuation. Findings most likely represent cirrhosis with regenerating nodules. Caudate lobe is enlarged. Small volume ascites. Small right pleural effusion and right basilar atelectasis. TECHNICAL DOCUMENTATION: JOB ID: [id number] Quality ID # [id number]: Final reports with documentation of one or more dose reduction techniques (e.g., Au tomated exposure control, adjustment of the mA and/or kV according to patient size, use of iterative reconstruction technique) 2010 [employer]- All Rights Reserved Reading location - IP/workstation name: [email or web address]
== END ==
LOC: RAD 10:00
PROVIDERS: ATTEND Family Medicine
DX: R16.0 Hepatomegaly, not elsewhere classified (principal); J90 Pleural effusion, not elsewhere classified; R18.8 Other ascites; J98.11 Atelectasis
CPT/HCPCS: 74178